=== PATIENT | female | born 1940 | race African-American/Black ===

== ENCOUNTER 2023-11-07 11:17 | Emergency (ER) | payer OTHER ==
[~2023-11-07] VITALS: Ht 165.1 cm; Wt 91.0 kg
[2023-11-07 11:19] VITALS: O2SAT 99
[2023-11-07] MEDS ORDERED: KETOROLAC 30MG/ML VIAL IV STA (11:34)
[2023-11-07 12:27] LABS: HEMOGLOBIN. 12.3 g/dL (12.0-16.0); MEAN CORPUSCULAR HEMOGLOBIN 30.2 pg (28.0-32.0); MEAN CORPUSCULAR HGB CONC 33.4 g/dL (31.0-37.0); MEAN CORPUSCULAR VOLUME 90.4 fL (81.0-99.0); MEAN PLATELET VOLUME 8.7 fl (7.4-10.4); PLATELET 125 x1000/uL (130-400); RED BLOOD CELL COUNT 4.09 mill/uL (4.2-5.4); RED CELL DISTRIBUTION WIDTH 13.8 % (11.6-14.6); WHITE BLOOD COUNT 4.1 x1000/uL (4.5-11.0)
[2023-11-07 12:36] LABS: ALANINE AMINOTRANSFERASE 22 IU/L (10-49); ALBUMIN 4.1 g/dL (3.2-4.8); ASPARTATE AMINOTRANSFERASE 28 IU/L (<34); BILIRUBIN TOTAL 0.5 mg/dL (0.1-1.0); CALCIUM 9.1 mg/dL (8.7-10.4); CARBON DIOXIDE 26 mEq/L (21-32); CHLORIDE 104 mEq/L (98-107); GLUCOSE 250 mg/dL (70-105); LACTIC ACID 2.3 mmol/L (0.4-2.0); POTASSIUM 4.3 mEq/L (3.5-5.1); PROTEIN TOTAL 7.2 g/dL (6.0-8.3); SODIUM 134 mEq/L (136-145); UREA NITROGEN BLOOD 12 mg/dL (9-23)
[2023-11-07 12:38] LABS: PROTHROMBIN TIME 11.5 sec (9.6-11.0)
[2023-11-07 12:43] LABS: DIFFERENTIAL COMMENT 1
[2023-11-07] MEDS ORDERED: PIPERACILLIN/TAZO 3.375G/50ML 50 ML IV ONE (12:45)
[2023-11-07] MEDS ORDERED: VANCOMYCIN 1G PREMIX 200 ML IV ONE (12:45)
[2023-11-07] MEDS ORDERED: SODIUM CHLORIDE 0.9% 1000ML BAG (SEPSIS BOLUS) IV ONE (12:45)
[2023-11-07 13:15] LABS: PLATELET ESTIMATE SLIGHTLY DECREASED
[2023-11-07 14:16] LABS: CLARITY URINE CLEAR (CLEAR); COLOR URINE YELLOW (YELLOW); GLUCOSE URINE NEGATIVE (NEGATIVE); KETONES URINE NEGATIVE (NEGATIVE); LEUKOCYTE ESTERASE URINE 2+ (NEGATIVE); NITRITE URINE POSITIVE (NEGATIVE); OCCULT BLOOD URINE NEGATIVE (NEGATIVE); PH URINE 6.5 (4.5-8.0); PROTEIN URINE NEGATIVE (NEGATIVE); SPECIFIC GRAVITY URINE 1.005 (1.005-1.030); UROBILINOGEN URINE 0.2 E.U./dL (0.2-1.0)
[2023-11-07 14:37] LABS: SQUAMOUS EPITHELIAL CELL URINE RARE /lpf (RARE/1+)
[2023-11-07 14:38] LABS: BACTERIA URINE 4+; RBC URINE NONE SEEN /hpf (0-2)
[2023-11-07 15:46] VITALS: BP 163/62; PULSE 84; RESP 17; TEMP 98
== END 2023-11-07 15:53 | disposition short-term general hospital (02) ==
LOC: ER 11:17 → EDBEDREQ 12:40 → CANBEDREQ 13:37 → ER 15:53
DX: A41.9 Sepsis, unspecified organism (principal); F41.9 Anxiety disorder, unspecified; E11.9 Type 2 diabetes mellitus without complications; I10 Essential (primary) hypertension; Z88.2 Allergy status to sulfonamides; Z88.0 Allergy status to penicillin; Z85.9 Personal history of malignant neoplasm, unspecified
CPT/HCPCS: 99291; 74176; 80053; 81003; 83605; 83690; 85025; 85610; 87040; 87086; 36415; 71045; J2543; J7030

== ENCOUNTER 2024-11-11 03:08 | Emergency (ER) | payer OTHER ==
[~2024-11-11] VITALS: Ht 167.6 cm; Wt 90.0 kg
[2024-11-11 03:10] VITALS: O2SAT 98
[2024-11-11] MEDS: ONDANSETRON HCL 4MG/2ML INJ IV STA (04:43)
[2024-11-11] MEDS: MORPHINE SULFATE 4 MG/ML INJ (FOR IV/IM USE) IV STA (04:46)
[2024-11-11] MEDS: SODIUM CHLORIDE 0.9% 500 ML IV ONE (04:47)
[2024-11-11 04:52] LABS: HEMOGLOBIN. 12.2 g/dL (12.0-16.0); MEAN CORPUSCULAR HEMOGLOBIN 30.7 pg (28.0-32.0); WHITE BLOOD COUNT 4.1 x1000/uL (4.5-11.0)
[2024-11-11 04:58] LABS: HEMATOCRIT. 36.5 % (36.0-48.0); MEAN CORPUSCULAR HGB CONC 33.3 g/dL (31.0-37.0); MEAN CORPUSCULAR VOLUME 92.2 fL (81.0-99.0); MEAN PLATELET VOLUME 9.3 fl (7.4-10.4); PLATELET 136 x1000/uL (130-400); RED BLOOD CELL COUNT 3.96 mill/uL (4.2-5.4); RED CELL DISTRIBUTION WIDTH 13.7 % (11.6-14.6)
[2024-11-11 05:01] LABS: DIFFERENTIAL COMMENT 1
[2024-11-11 05:04] LABS: CHLORIDE 103 mEq/L (98-107); POTASSIUM 4.1 mEq/L (3.5-5.1); SODIUM 140 mEq/L (136-145)
[2024-11-11 05:05] LABS: CALCIUM 9.5 mg/dL (8.7-10.4); CARBON DIOXIDE 26 mEq/L (21-32)
[2024-11-11 05:10] LABS: CREATININE 0.9 mg/dL (0.6-1.0); GLUCOSE 231 mg/dL (70-105); UREA NITROGEN BLOOD 11 mg/dL (9-23)
[2024-11-11 08:35] VITALS: BP 125/59; PULSE 85; RESP 17; TEMP 36.6; O2SAT 100
[2024-11-11 12:10] LABS: PLATELET ESTIMATE NORMAL
== END 2024-11-11 09:30 | disposition short-term general hospital (02) ==
LOC: ER 03:08 → CANBEDREQ 07:49 → ER 09:30
DX: K43.2 Incisional hernia without obstruction or gangrene (principal); E11.9 Type 2 diabetes mellitus without complications; Z88.0 Allergy status to penicillin; Z88.2 Allergy status to sulfonamides; Z90.49 Acquired absence of other specified parts of digestive tract; Z85.038 Personal history of other malignant neoplasm of large intestine
CPT/HCPCS: 99285; 74176; 96374; 96361; 96375; 80048; 83690; 85025; 36415; J2405; J2270; J7040

== ENCOUNTER 2025-07-12 04:29 | Emergency (ER) | payer OTHER ==
[~2025-07-12] VITALS: Ht 167.6 cm; Wt 98.0 kg
[2025-07-12 04:37] VITALS: O2SAT 97
[2025-07-12] MEDS ORDERED: ESCI5TAB MT (04:43)
[2025-07-12] MEDS ORDERED: AMLO2.5T45 MT (04:43)
[2025-07-12] MEDS ORDERED: INSLIS SUBCUT (04:43)
[2025-07-12] MEDS ORDERED: CLOP-31 MT (04:43)
[2025-07-12] MEDS ORDERED: ATOR10TA MT (04:43)
[2025-07-12] MEDS: ONDANSETRON HCL 4MG/2ML INJ IV ONE (05:05)
[2025-07-12 05:08] LABS: HEMATOCRIT. 36.9 % (36.0-48.0); HEMOGLOBIN. 12.1 g/dL (12.0-16.0); MEAN PLATELET VOLUME 8.8 fl (7.4-10.4); PLATELET 142 x1000/uL (130-400); RED BLOOD CELL COUNT 4.06 mill/uL (4.2-5.4); RED CELL DISTRIBUTION WIDTH 14.4 % (11.6-14.6)
[2025-07-12 05:21] LABS: CREATININE 0.8 mg/dL (0.6-1.0)
[2025-07-12 05:22] LABS: UREA NITROGEN BLOOD 7 mg/dL (9-23)
[2025-07-12] MEDS: ACETAMINOPHEN 1000MG/100ML 100 ML IV ONE (05:22)
[2025-07-12 05:23] LABS: ASPARTATE AMINOTRANSFERASE 33 IU/L (<34); BILIRUBIN DIRECT 0.3 mg/dL (<=3.0); TROPONIN I HIGH SENSITIVITY < 4 ng/L (3.0-34)
[2025-07-12 05:24] LABS: BILIRUBIN TOTAL 0.8 mg/dL (0.1-1.0); PROTEIN TOTAL 7.3 g/dL (6.0-8.3)
[2025-07-12] MEDS: MORPHINE SULFATE 4 MG/ML INJ (FOR IV/IM USE) IV ONE (06:03)
[2025-07-12] MEDS: IOHEXOL-300 100 ML BOTTLE ONE (06:24)
[2025-07-12] MEDS ORDERED: NALOXONE HCL 0.4MG/ML VIAL IV PRN (07:15)
[2025-07-12] MEDS ORDERED: MORPHINE SULFATE 2 MG/ML INJ (NOT FOR IM USE) IV PRN (07:15)
[2025-07-12] MEDS ORDERED: MAGNESIUM/ALUMINUM HYDROXIDE/SIMETHICONE 30ML UDC PO PRN (07:15)
[2025-07-12] MEDS: SODIUM CHLORIDE 0.9% 1,000 ML IV SCH (07:15)
[2025-07-12] MEDS ORDERED: ACETAMINOPHEN 325MG TABLET PO PRN (07:15)
[2025-07-12] MEDS ORDERED: ZOLPIDEM TARTRATE 5MG TABLET PO PRN (07:15)
[2025-07-12] MEDS ORDERED: CLONIDINE 0.1MG TABLET PO PRN (07:15)
[2025-07-12] MEDS ORDERED: HYDROCODONE/ACETAMINOPHEN 5/325MG TABLET PO PRN (07:15)
[2025-07-12] MEDS ORDERED: ONDANSETRON HCL 4MG/2ML INJ IV PRN (07:15)
[2025-07-12] MEDS ORDERED: DEXTROSE 50% WATER 50ML SYRINGE IV PRN (07:15)
[2025-07-12 07:18] LABS: BAND% 2.0 % (1.0-6.0); LYMPHOCYTES % MANUAL 8.0 % (20.0-60.0); MONOCYTES % MANUAL 9.0 % (2.0-8.0); NEUTROPHILS % MANUAL 81.0 % (45.0-75.0); PLATELET ESTIMATE NORMAL
[2025-07-12 07:35] VITALS: BP 166/55; PULSE 79; RESP 13; TEMP 36.7; O2SAT 96
[2025-07-12] MEDS: INSULIN REGULAR (HUMULIN R) 1000UNITS/10ML VIAL IV ONE (07:45)
[2025-07-12] MEDS ORDERED: INSULIN LISPRO 100 UNITS/ML SUBCUT SCH (08:20)
[2025-07-12] MEDS ORDERED: PANTOPRAZOLE SODIUM 40 MG/VIAL IV SCH (09:00)
[2025-07-12] MEDS ORDERED: CITALOPRAM HYDROBROMIDE 10MG TABLET PO SCH (09:00)
[2025-07-12] MEDS ORDERED: ENOXAPARIN 40MG/0.4ML SYR SUBCUT SCH (09:00)
[2025-07-12] MEDS ORDERED: BLOOD SUGAR DIAGNOSTIC STRIP TEST SCH (09:00)
[2025-07-12] MEDS ORDERED: AMLODIPINE 2.5MG TABLET PO SCH (09:00)
[2025-07-12] MEDS ORDERED: ATORVASTATIN CALCIUM 10MG TABLET PO SCH (09:00)
[2025-07-12] MEDS ORDERED: CLOPIDOGREL 75MG TABLET PO SCH (09:00)
== END 2025-07-12 09:06 | disposition short-term general hospital (02) ==
LOC: ER 04:29 → EDBEDREQSVC 07:00 → EDBEDREQTM 07:00 → EDBEDREQ 07:00 → ER 09:06 → CMPBEDREQ 07-13 07:40
DX: R10.13 Epigastric pain (principal); R11.2 Nausea with vomiting, unspecified; E11.65 Type 2 diabetes mellitus with hyperglycemia; I10 Essential (primary) hypertension; R06.02 Shortness of breath; Z85.048 Personal history of other malignant neoplasm of rectum, rectosigmoid junction, and anus; Z85.068 Personal history of other malignant neoplasm of small intestine; Z86.73 Personal history of transient ischemic attack (TIA), and cerebral infarction without residual deficits; Z87.11 Personal history of peptic ulcer disease; Z88.0 Allergy status to penicillin; Z88.2 Allergy status to sulfonamides; Z79.899 Other long term (current) drug therapy
CPT/HCPCS: 80076; 80048; 80320; 82962; 83880; 83690; 85025; 84484; 36415; 71045; 74177; 93005; 96365; 96375; 99285; Q9967; J1815; J2405; J2270; A4606; G0480; J0131